=== PATIENT | male | born 1995 | race Caucasian/White ===

== ENCOUNTER 2019-07-18 03:42 | Emergency (ER) | payer OTHER ==
[~2019-07-18] VITALS: Ht 180.3 cm; Wt 77.1 kg
--- NOTE | 2019-07-18 03:55 | NUR ---
Spoke with Britta from Poison control and relayed patient information. Per Britta recommended to give patient charcoal. Dr. Fountain made aware. No new orders at this time
--- NOTE | 2019-07-18 04:00 | NUR ---
Patient reportedly took a total of Gabapentin 800mg x 12-13 tablets = 9600-73260vo and Hydroxyzine 50mg x 5-6 tablets = 250-300mg all in one sitting.
--- NOTE | 2019-07-18 04:00 | NUR ---
Patient ambulated with stable gait. A/Ox4. Speech is clear, speaks in complete sentences. Patient came for c/o sob and weakness after taking multiple tablets of gabapentin and hydroxyzine for anxiety. Patient states that he does not wish to hurt or harm himself, but was feeling overwhelmed and anxious so he took the mentioned medications to try and help alleviate his anxiety. Respiratory even and unlabored, no cough no sob or increased work of breathing. No cardiovascular distress noted, all pulses palpable, <3 sec cap refill. Denies any n/v/d, or any distress at this time. Patient in bed at lowest position, sr upx2, call light within reach. Fall precautions implemented per protocol.
--- NOTE | 2019-07-18 04:10 | NUR ---
Offered patient urinal to provide urine specimen, patient declined and asked if he can just use the restroom.
--- NOTE | 2019-07-18 04:14 | NUR ---
Assisted patient to the bathroom patient was able to ambulate with stable gait, patient had a syncopal episode within the bathroom while attempting to . No sustained visible injuries. ERMD able to examine patient immediately. Patient was assisted into a wheelchair with the help of three other nurses and the ER physician.
[2019-07-18] MEDS ORDERED: IV NS 1000 ML 1,000 ML IV ONE ×2 (04:30)
[2019-07-18 04:31] LABS: ETHANOL < 3 MG/DL (0-0)
[2019-07-18 04:31] LABS: *BLOOD, URINE 2+ (NEGATIVE); *CLARITY,URINE SLIGHTLY CLOUDY (CLEAR); *COLOR,URINE YELLOW (YELLOW); *KETONES,URINE TRACE (NEGATIVE); LEUKOCYTE ESTERASE ,URINE 1+ (NEGATIVE); NITRITE, URINE NEGATIVE (NEGATIVE); PH,URINE 6.5 (5.0-8.0); UGLUCOSE NEGATIVE (NEGATIVE)
[2019-07-18 04:37] LABS: THYROID STIMULATING HORMONE 1.436 mIU/mL (0.358-3.740)
[2019-07-18 04:44] LABS: *AMPHETAMINE, URINE NEGATIVE (NEGATIVE); *BARBITURATE, URINE NEGATIVE (NEGATIVE); *CANNABINOID, URINE NEGATIVE (NEGATIVE); *COCCAINE, URINE NEGATIVE (NEGATIVE); *OPIATE, URINE NEGATIVE (NEGATIVE); *PHENCYCLIDINE SCREEN,URINE NEGATIVE (NEGATIVE)
[2019-07-18 04:49] LABS: *BILIRUBIN,URIN 1+ (NEGATIVE)
[2019-07-18 04:51] LABS: CARBON DIOXIDE 27 mmol/L (21-32); CHLORIDE 100 mmol/L (98-107); CREATININE 1.4 mg/dL (0.6-1.3); GLUCOSE 118 mg/dL (74-106); POTASSIUM 3.1 mmol/L (3.5-5.1); UREA NITROGEN, BLOOD 15 mg/dL (7-18)
[2019-07-18 04:53] LABS: RBC,URINE 20-50 /HPF (0-3)
[2019-07-18 04:53] LABS: BASOPHILS % (AUTO) 0.6 % (0.0-2.0); EOSINOPHILS # (AUTO) 0.1 K/uL (0.0-0.7); HEMATOCRIT 44.4 % (36.7-47.1); HEMOGLOBIN 15.6 g/dL (12.5-16.3); LYMPHOCYTES % (AUTO) 26.1 % (20.5-51.5); MEAN CORPUSCULAR HGB CONC 35 g/dL (32.5-36.3); MEAN CORPUSCULAR VOLUME 85.5 fL (73.0-96.2); MONOCYTES # (AUTO) 0.6 K/uL (2.0-10.0); MONOCYTES % (AUTO) 14.9 % (0.0-11.0); NEUTROPHILS # (AUTO) 2.2 K/uL (1.8-8.9); NEUTROPHILS % (AUTO) 56.4 % (38.5-71.5); PLATELET COUNT (AUTO) 132 K/uL (152-348); WHITE BLOOD COUNT (AUTO) 3.9 K/uL (3.6-10.2)
[2019-07-18 04:54] LABS: BACTERIA,URINE MANY /HPF (NONE SEEN); MUCUS,URINE MODERATE /LPF (0-FEW); SQUAMOUS EPITHELIAL CELL,UR FEW /HPF (NONE SEEN); WBC,URINE 80-100 /HPF (0-3)
[2019-07-18 04:57] LABS: ALANINE AMINOTRANSFERASE 24 U/L (16-63); ALKALINE PHOSPHATASE 107 U/L (50-136); ASPARTATE AMINOTRANSFERASE 25 U/L (15-37); BILIRUBIN,DIRECT 0.1 mg/dL (0.0-0.2); BILIRUBIN,TOTAL 0.5 mg/dL (0.2-1.0); TOTAL PROTEIN, SERUM 7.2 g/dL (6.4-8.2)
[2019-07-18] MEDS ORDERED: POTASSIUM CHLORIDE 50 ML IV SCH (05:15)
[2019-07-18] MEDS ORDERED: MAGNESIUM SULFATE/D5W 100 ML IV SCH (05:15)
[2019-07-18] MEDS ORDERED: MAGNESIUM SULFATE/D5W 200 ML ONE (05:18)
--- NOTE | 2019-07-18 05:24 | NUR ---
Called [facility] to page Darcy Lewis NP.
[2019-07-18 05:25] LABS: CREATINE KINASE, TOTAL 127 U/L (39-308)
[2019-07-18 05:26] LABS: ACETAMINOPHEN < 2.0 ug/mL (10-30)
[2019-07-18] MEDS ORDERED: POTASSIUM CHLORIDE 50 ML ONE (05:30)
--- NOTE | 2019-07-18 05:32 | NUR ---
Dr. Fountain on panel call with Darcy Lewis NP.
--- NOTE | 2019-07-18 05:36 | NUR ---
1st bag of KCL infused and completed at 0536.
--- NOTE | 2019-07-18 05:40 | NUR ---
Patient is refusing to be admitted and wants to go home. ERMD aware and will discuss risks with patient.
[2019-07-18] MEDS ORDERED: CEFTRIAXONE 1 G in IV DEXTROSE 5% 50 ML IV ONE (05:45)
[2019-07-18] MEDS ORDERED: CEFTRIAXONE 1 G VIAL ONE (05:53)
[2019-07-18] MEDS ORDERED: LIDOCAINE HCL 1% 20 ML VIAL ONE (05:53)
[2019-07-18] MEDS ORDERED: POTASSIUM CHLORIDE 20 MEQ TAB.PRT.SR ONE (05:57)
[2019-07-18] MEDS ORDERED: CEFTRIAXONE 1 G VIAL IM ONE (06:00)
[2019-07-18] MEDS ORDERED: POTASSIUM CHLORIDE 20 MEQ TAB.PRT.SR PO ONE (06:00)
[2019-07-18] MEDS ORDERED: IV NS 1000 ML 1,000 ML IV PRN (06:15)
[2019-07-18] MEDS ORDERED: ACETAMINOPHEN 325 MG TABLET PO PRN (06:15)
[2019-07-18] MEDS ORDERED: MAGNESIUM HYDROXIDE 30 ML LIQUID UDC PO PRN (06:15)
[2019-07-18] MEDS ORDERED: ONDANSETRON 4 MG/2 ML VIAL IV PRN (06:15)
[2019-07-18 06:24] LABS: BAND % (MANUAL) 4 % (0-10); EOSINOPHILS % (MANUAL) 2 % (0-8); LYMPHOCYTES % (MANUAL) 25 % (20-40); MONOCYTES % (MANUAL) 14 % (2-10); NEUTROPHILS % (MANUAL) 53 % (42-75)
--- NOTE | 2019-07-18 06:45 | NUR ---
Patient does not wish to proceed with medical care recommended by Dr. Fountain. Patient given information related to possible complications, up to and including , which could occur as a result of leaving the hospital at this time. Patient verbalizes understanding of risks involved due to leaving against medical advice. Patient has signed AMA form. IV removed. Catheter intact and site benign. Pressure and 4x4 gauze applied to site. No bleeding noted.
[2019-07-18 06:47] VITALS: BP 128/79
== END 2019-07-18 06:47 | disposition left against medical advice (07) ==
LOC: ER 03:46
DX: T42.6X4A Poisoning by other antiepileptic and sedative-hypnotic drugs, undetermined, initial encounter (principal); T43.594A Poisoning by other antipsychotics and neuroleptics, undetermined, initial encounter; R06.02 Shortness of breath; Y92.89 Other specified places as the place of occurrence of the external cause; N39.0 Urinary tract infection, site not specified; E87.6 Hypokalemia; D69.6 Thrombocytopenia, unspecified; R51 Headache; R94.31 Abnormal electrocardiogram [ECG] [EKG]; F41.9 Anxiety disorder, unspecified
CPT/HCPCS: 36415; 70450; 71045; 72125; 80048; 80076; 80307 ×2; 80329; 81001; 82550; 84443; 85025; 85730; 87086; 93005 ×2; 96361; 96365; 96372; 99285; G0480; J0696; J3475; J3480; J3490; 70030-TC; A4663; J7030; J7050